=== PATIENT | female | born 1980 | race Caucasian/White ===

== ENCOUNTER 2024-05-26 09:34 | Emergency (ER) | payer OTHER ==
--- OUTSIDE RECORDS SUMMARY | 2024-05-26 09:37 | XMS REPORT | Continuity of Care Document ---
Author Name Unknown Address [address] [facility]. [address] [place] [address] [facility] thconnect Address [address] [facility]. [address] [place] [address] Care Team Providers Care [employer] Supervisor Name Role Phone Pcp, Patient Does Not Have A Primary Care Physic pricila NIMESH ULLOA Attending Clinician Unavailabl e Doctor Unassigned, [place] Attending Clinician U navailable Payers Payer Name Policy Type Policy Number Effective Date Expirati on Date Source [facility] [id number] 2020 00:00:00 Problems Condition Name Condition Details Condition Category Status Onset Date Resolution Date Last Treatment Date Treating Clinician Comments Source Tobacco use Tobacco use Disease Active 02-21 00:00: 00 [facility] Polysubsta nce abuse Polysubsta nce abuse Disease Active 02-21 00:00: 00 [facility] BMI 24.0-24.9, adult BMI 24.0-24.9, adult Disease Active -18 00:00: 00 [facility] History of bilateral tubal ligation History of bilateral tubal ligation Disease Active 8 00:00: 00 [facility] 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 Active 02-12 00:00: 00 [facility] Allergies, Adverse Reactions, Alerts Allergy Name Allergy Type Status Severity Reaction(s) Onset Date Inactive Date Treating Clinician Comments Source TREE NUTS Food Active ITCHING 02-19 00:00: 00 [facility] Tree Nuts Propensi ty to adverse reaction s Active Itching 02-19 00:00: 00 [facility] Social History Social Habit Start Date Stop Date Quantity Comments Source History of tobacco use Cigarette Smoker [facility] Exposure to SARS-CoV-2 (event) 2020-01-23 00:00:00 2020-02-22 15:43:00 Not sure [facility] Tobacco use and exposure 2020-02-22 00:00:00 2020-02-22 00:00:00 Smokeless tobacco non-user [facility] Alcohol intake 2020-02-22 00:00:00 2020-02-22 00:00:00 Current drinker of alcohol (finding) [facility] History of Social function 2020-02-22 00:00:00 2020-02-22 00:00:00 [facility] Tobacco Comment 2020-02-22 00:00:00 2020-02-22 00:00:00 3-5 cigarettes a day [facility] Alcohol Comment 2020-02-22 00:00:00 2020-02-22 00:00:00 occasional [facility] Sex Assigned At 1980 00:00:00 1980 00:00:00 [facility] Smoking Status Start Date Stop Date Source Smokes tobacco daily 2020-02-22 00:00:00 [facility] Encounters Start Date/Time End Date/Time Encounter Type Admission Type Attending Clinicians Care Facility Care Department Encounter ID Source 2023-05-14 11:44:46 2023-05-14 11:44:46 Outpatient S[facility] SFA [id number] [facility] 2020-04-06 13:30:00 2020-04-06 13:30:00 Outpatient R [facility] [id number] [facility] 2020-03-22 00:00:00 2020-03-22 00:00:00 Outpatient NIMESH BELTRAN [facility] [id number] [facility] 2020-03-09 15:30:00 2020-03-09 15:30:00 Outpatient R [facility] [id number] [facility] 2020-03-03 09:30:00 2020-03-03 09:30:00 Outpatient R [facility] [id number] [facility] 2020-03-02 00:00:00 2020-03-02 00:00:00 Patient Secure Msg Doctor Unassigned, [place] [facility] [id number] [facility] 2020-02-22 15:15:00 2020-02-22 15:15:00 Outpatient R NIMESH ULLOA [facility] [id number] [facility] 2020-02-09 22:42:00 2020-02-09 22:42:00 Emergency X [facility] ERT [id number] [facility]
--- NOTE | 2024-05-26 11:06 | ER ---
Nurse's Notes [facility] Name: Angie Leonardo Age: 43 yrs Sex: Female : 1980 Arrival Date: 05/26/2024 Time: 09:34 Bed 17 Private MD: Diagnosis: Dermatitis, unspecified;Allergic contact dermatitis due to other agents;Allergic contact dermatitis due to other chemical products Presentation: 05/26 09:43 Chief complaint: Patient states: Rash with itching to body off/on for 2 months. ll1 Coronavirus screen: Client denies travel out of the [place] in the last 14 days. At this time, the client does not indicate any symptoms associated with coronavirus-19. Ebola Screen: Patient denies travel to an Ebola-affected area in the 21 days before illness onset. Initial Sepsis Screen: Does the patient meet any 2 criteria? No. Patient's initial sepsis screen is negative. Does the patient have a suspected source of infection? No. Patient's initial sepsis screen is negative. Risk Assessment: Do you want to hurt yourself or someone else? Patient reports no desire to harm self or others. Onset of symptoms was March 26, 2024. 09:43 Method Of Arrival: Ambulatory ll1 09:43 Acuity: MADINA 4 ll1 Triage Assessment: 09:43 General: Appears uncomfortable, Behavior is calm, cooperative, appropriate for age. ll1 Pain: Denies pain. Derm: Reports rash with itching to body off/on for 2 months. Historical: - Allergies: 09:38 No Known Allergies; ll1 - Home Meds: 09:42 None [Active]; ll1 - PMHx: 09:42 None; ll1 - PSHx: 09:42 section; ll1 - Immunization history:: Adult Immunizations up to date. - Infectious Disease History:: Denies. - Social history:: Smoking status: Patient reports the use of cigarette tobacco products, smokes .1 packs per day. - Family history:: not pertinent. Screenin:52 [facility] ED Fall Risk Assessment (Adult) History of falling in the last 3 months, le1 including since admission No falls in past 3 months (0 pts) Confusion or Disorientation No (0 pts) Intoxicated or Sedated No (0 pts) Impaired Gait No (0 pts) Mobility Assist Device Used No (0 pt) Altered Elimination No (0 pt) Score/Fall Risk Level 0 - 2 = Low Risk Oriented to surroundings, Maintained a safe environment, Educated pt \T\ family on fall prevention, incl call for assistance when getting out of bed, Assessed \T\ reinforced patient's understanding of fall precautions, Hourly rounding (assess needs \T\ fall precautionary measures) done. Abuse screen: Denies threats or abuse. Nutritional screening: No deficits noted. Tuberculosis screening: No symptoms or risk factors identified. Assessment: 10:50 General: Appears in no apparent distress. well groomed, Behavior is calm, cooperative, le1 appropriate for age, Reports itchiness and generalized pain. Pain: Quality of pain is described as aching, itching. Neuro: No deficits noted. Cardiovascular: No deficits noted. Respiratory: Reports shortness of breath at rest. GI: No deficits noted. : No deficits noted. EENT: No deficits noted. Derm: Rash noted that is itchy, red, on Generalized Reports itching, pain that is 4 out of 10 on a pain scale. Vital Signs: 09:43 BP 124 / 86; Pulse 93; Resp 16; Temp 97.3; Pulse Ox 100% ; Weight 68.04 kg; Height 5 ll1 ft. 4 in. ; Pain 4/10; 10:51 BP 119 / 71; Pulse 90; Resp 16 S; Temp 98.4(O); Pulse Ox 100% ; Pain 4/10; le1 09:43 Body Mass Index 25.75 (68.04 kg, 162.56 cm) ll1 09:43 Pain Scale: Adult ll1 10:51 Pain Scale: Adult le1 ED Course: 09:36 Patient arrived in ED. mr 09:38 Arm band placed on. ll1 09:39 Mike Gross MD is Attending Physician. [facility] 09:44 Triage completed. ll1 10:11 Patient placed in an exam room, on a stretcher. ll1 10:15 Samson Donis, FELICIA is Primary Nurse. le1 10:53 Patient has correct armband on for positive identification. Bed in low position. Call le1 light in reach. Side rails up X2. Provided Education on: Informed patient to use call light when needing assistance. 11:18 Patient did not have IV access during this emergency room visit. le1 Administered Medications: 11:19 Not Given (Patient Refused): [id number] mg PO once le1 11:19 Not Given (Patient Refused): mg PO once le1 11:19 Not Given (Patient Refused): [id number] mg PO once le1 Medication: 10:53 VIS not applicable for this client. le1 Outcome: 11:06 Discharge ordered by . viral 11:17 Discharged to home ambulatory, le1 11:17 Condition: stable 11:17 Discharge instructions given to patient, Instructed on discharge instructions, follow up and referral plans. medication usage, Demonstrated understanding of instructions, follow-up care, medications, Prescriptions given X 3, 11:20 Patient left the ED. le1 Signatures: Mike Gross MD MD cha Rivera, Mary, Lamont Miguel mr Emma Proctor, RN RN 1 Samson Donis RN RN le1
--- NOTE | 2024-05-26 11:07 | EDPHYS ---
Physician Documentation [facility] Name: Angie Leonardo Age: 43 yrs Sex: Female : 1980 Arrival Date: 05/26/2024 Time: 09:34 Bed 17 Private MD: QUENTIN Physician Mike Gross HPI: 05/26 11:03 This 43 yrs old Female presents to ER via Ambulatory with complaints of Rash. viral 11:03 The patient's rash thought to be caused by allergies, Dermatitis Contact allergy. The viral rash is located on the body diffusely. The rash can be described as confluent, erythematous. Onset: The symptoms/episode began/occurred 3 day(s) ago. Associated signs and symptoms: Pertinent positives: burning sensation, itching. Severity of symptoms: At their worst the symptoms were mild moderate in the emergency department the symptoms have improved mildly. Treatment given at home: Benadryl. The patient has experienced similar episodes in the past, a few times. Historical: - Allergies: 09:38 No Known Allergies; ll1 - Home Meds: 09:42 None [Active]; ll1 - PMHx: 09:42 None; ll1 - PSHx: 09:42 section; ll1 - Immunization history:: Adult Immunizations up to date. - Infectious Disease History:: Denies. - Social history:: Smoking status: Patient reports the use of cigarette tobacco products, smokes .1 packs per day. - Family history:: not pertinent. ROS: 11:03 Constitutional: Negative for fever, chills, and weight loss, Eyes: Negative for injury, viral pain, redness, and discharge, ENT: Negative for injury, pain, and discharge, Neck: Negative for injury, pain, and swelling, Cardiovascular: Negative for chest pain, palpitations, and edema, Respiratory: Negative for shortness of breath, cough, wheezing, and pleuritic chest pain, Abdomen/GI: Negative for abdominal pain, nausea, vomiting, diarrhea, and constipation, Back: Negative for injury and pain, : Negative for injury, bleeding, discharge, and swelling, MS/Extremity: Negative for injury and deformity, Neuro: Negative for headache, weakness, numbness, tingling, and seizure, Psych: Negative for depression, anxiety, suicide ideation, homicidal ideation, and hallucinations, Allergy/Immunology: Negative for hives, rash, and allergies, Endocrine: Negative for neck swelling, polydipsia, polyuria, polyphagia, and marked weight changes, Hematologic/Lymphatic: Negative for swollen nodes, abnormal bleeding, and unusual bruising, 11:03 Skin: Positive for rash, Exam: : Constitutional: This is a well developed, well nourished patient who is awake, alert, viral and in no acute distress. Head/Face: Normocephalic, atraumatic. Eyes: Pupils equal round and reactive to light, extra-ocular motions intact. Lids and lashes normal. Conjunctiva and sclera are non-icteric and not injected. Cornea within normal limits. Periorbital areas with no swelling, redness, or edema. ENT: Nares patent. No nasal discharge, no septal abnormalities noted. Tympanic membranes are normal and external auditory canals are clear. Oropharynx with no redness, swelling, or masses, exudates, or evidence of obstruction, uvula midline. Mucous membranes moist. Neck: Trachea midline, no thyromegaly or masses palpated, and no cervical lymphadenopathy. Supple, full range of motion without nuchal rigidity, or vertebral point tenderness. No Meningismus. Chest/axilla: Normal chest wall appearance and motion. Nontender with no deformity. No lesions are appreciated. Cardiovascular: Regular rate and rhythm with a normal S1 and S2. No gallops, murmurs, or rubs. Normal PMI, no JVD. No pulse deficits. Respiratory: Lungs have equal breath sounds bilaterally, clear to auscultation and percussion. No rales, rhonchi or wheezes noted. No increased work of breathing, no retractions or nasal flaring. Abdomen/GI: Soft, non-tender, with normal bowel sounds. No distension or tympany. No guarding or rebound. No evidence of tenderness throughout. Back: No spinal tenderness. No costovertebral tenderness. Full range of motion. Skin: Warm, dry with normal turgor. Normal color with no rashes, no lesions, and no evidence of cellulitis. MS/ Extremity: Pulses equal, no cyanosis. Neurovascular intact. Full, normal range of motion. Neuro: Awake and alert, GCS 15, oriented to person, place, time, and situation. Cranial nerves II-XII grossly intact. Motor strength 5/5 in all extremities. Sensory grossly intact. Cerebellar exam normal. Normal gait. Psych: Awake, alert, with orientation to person, place and time. Behavior, mood, and affect are within normal limits. Vital Signs: 09:43 BP 124 / 86; Pulse 93; Resp 16; Temp 97.3; Pulse Ox 100% ; Weight 68.04 kg; Height 5 ll1 ft. 4 in. ; Pain 4/10; 10:51 BP 119 / 71; Pulse 90; Resp 16 S; Temp 98.4(O); Pulse Ox 100% ; Pain 4/10; le1 09:43 Body Mass Index 25.75 (68.04 kg, 162.56 cm) ll1 09:43 Pain Scale: Adult ll1 10:51 Pain Scale: Adult le1 MDM: 09:39 Medical Screening Exam initiated viral 11:04 Differential diagnosis: allergic reaction. Data reviewed: vital signs, nurses notes. viral Consideration of Admission/Observation Escalation of care including admission/observation considered. I considered the following discharge prescriptions or medication management in the emergency department Medications were administered in the Emergency Department. See MAR. Historians other than the Patient: pt well informed. Care significantly affected by the following chronic conditions: none. Administered Medications: 11:19 Not Given (Patient Refused): [id number] mg PO once le1 11:19 Not Given (Patient Refused): [id number] mg PO once le1 11:19 Not Given (Patient Refused): [id number] mg PO once le1 Disposition Summary: 05/26/24 11:06 Discharge Ordered Notes: Location: Home viral Problem: new viral Symptoms: have improved viral Condition: Stable viral Diagnosis - Dermatitis, unspecified viral - Allergic contact dermatitis due to other agents viral - Allergic contact dermatitis due to other chemical products viral Followup: viral - With: Private Physician - When: 2 - 3 days - Reason: Recheck today's complaints, Continuance of care, Re-evaluation by your physician Discharge Instructions: - Contact Dermatitis viral - Rash, Adult viral - Rash, Adult, Panv-hi-Rlwf viral - Contact Dermatitis, Celh-gf-Avry viral - Discharge Summary Sheet le1 Forms: - Medication Reconciliation Form viral - Antibiotic Education viral - Prescription Opioid Use viral - Patient Portal Instructions viral - Leadership Thank You Letter viral - Work release form le1 Prescriptions: - Benadryl 25 mg Oral Capsule - take 1 capsule ORAL route every 6 hours As needed; 30 tablet; Refills: 0, [facility] Product Selection Permitted - Pepcid 20 mg Oral tablet - take 1 tablet ORAL route every 12 hours for 21 days; 42 tablet; Refills: 0, viral Product Selection Permitted - Prednisone 20 mg Oral Tablet - take 2 tablets ORAL route once daily for 5 days; 10 tablet; Refills: 0, Product [facility] Selection Permitted Signatures: Mike Gross MD MD cha Lewis, Lynsay RN RN ll1 Samson Donis RN RN le1
[2024-05-26 11:24] VITALS: O2SAT 100
[2024-05-26 11:26] VITALS: BP 119/71; TEMP 98.4
== END 2024-05-26 11:20 | disposition home or self-care (01) ==
LOC: ER 09:34
DX: L23.5 Allergic contact dermatitis due to other chemical products (principal); L23.89 Allergic contact dermatitis due to other agents

== ENCOUNTER 2024-07-20 22:40 | Emergency (ER) | payer OTHER, SELFPAY ==
--- OUTSIDE RECORDS SUMMARY | 2024-07-20 22:42 | XMS REPORT | Continuity of Care Document ---
Author Name Unknown Address [address] [facility] [place]. [address] [place] [address] [facility] thconnect Address [address] [facility]. [address] [place] [address] Care Team Providers Care Chief Operating Engineer Name Role Phone Pcp, Patient Does Not Have A Primary Care Physic pricila NIMESH ULLOA Attending Clinician Unavailabl e Doctor Unassigned, [place] Attending Clinician U navailable Payers Payer Name Policy Type Policy Number Effective Date Expirati on Date Source [facility] [id number] 2020 00:00:00 Problems Condition Name Condition Details Condition Category Status Onset Date Resolution Date Last Treatment Date Treating Clinician Comments Source Tobacco use Tobacco use Disease Active 02-21 00:00: 00 [facility] Polysubsta nce abuse Polysubsta nce abuse Disease Active 02-21 00:00: 00 [facility] BMI 24.0-24.9, adult BMI 24.0-24.9, adult Disease Active 8-18 00:00: 00 [facility] History of bilateral tubal ligation History of bilateral tubal ligation Disease Active 8 00:00: 00 [facility] 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 Active 02-12 00:00: 00 [facility] Allergies, Adverse Reactions, Alerts Allergy Name Allergy Type Status Severity Reaction(s) Onset Date Inactive Date Treating Clinician Comments Source TREE NUTS Food Active ITCHING 02-19 00:00: 00 [facility] Tree Nuts Propensi ty to adverse reaction s Active Itching 02-19 00:00: 00 [facility] Social History Social Habit Start Date Stop Date Quantity Comments Source History of tobacco use Cigarette Smoker [facility] Exposure to SARS-CoV-2 (event) 2020-01-23 00:00:00 2020-02-22 15:43:00 Not sure [facility] Tobacco use and exposure 2020-02-22 00:00:00 2020-02-22 00:00:00 Smokeless tobacco non-user [facility] Alcohol intake 2020-02-22 00:00:00 2020-02-22 00:00:00 Current drinker of alcohol (finding) [facility] History of Social function 2020-02-22 00:00:00 2020-02-22 00:00:00 [facility] Tobacco Comment 2020-02-22 00:00:00 2020-02-22 00:00:00 3-5 cigarettes a day [facility] Alcohol Comment 2020-02-22 00:00:00 2020-02-22 00:00:00 occasional [facility] Sex Assigned At 1980 00:00:00 1980 00:00:00 [facility] Smoking Status Start Date Stop Date Source Smokes tobacco daily 2020-02-22 00:00:00 [facility] Encounters Start Date/Time End Date/Time Encounter Type Admission Type Attending Clinicians Care Facility Care Department Encounter ID Source 2023-05-14 11:44:46 2023-05-14 11:44:46 Outpatient SFA SFA [id number] [facility] 2020-04-06 13:30:00 2020-04-06 13:30:00 Outpatient R [facility] [id number] [facility] 2020-03-22 00:00:00 2020-03-22 00:00:00 Outpatient NIMESH BELTRAN [facility] [id number] [facility] 2020-03-09 15:30:00 2020-03-09 15:30:00 Outpatient R [facility] [id number] [facility] 2020-03-03 09:30:00 2020-03-03 09:30:00 Outpatient R [facility] [id number] [facility] 2020-03-02 00:00:00 2020-03-02 00:00:00 Patient Secure Msg Doctor Unassigned, [place] [facility] [id number] [facility] 2020-02-22 15:15:00 2020-02-22 15:15:00 Outpatient R NIMESH ULLOA [facility] [id number] [facility] 2020-02-09 22:42:00 2020-02-09 22:42:00 Emergency X [facility] ERT [id number] [facility]
--- NOTE | 2024-07-20 23:33 | ER ---
Nurse's Notes [facility] Name: Angie Leonardo Age: 43 yrs Sex: Female : 1980 Arrival Date: 07/20/2024 Time: 22:40 Bed IW1 Private MD: Diagnosis: ED Course: 07/20 22:43 Patient arrived in ED. im 22:47 Mike Porter PA is PHCP. cp 22:47 Abilio Cleaning MD is Attending Physician. cp 23:06 Patient's name was called from ER [email or web address]. No response. Unable to locate patient. Will vc1 disposition as left without being seen by a provider. Administered Medications: No medications were administered Outcome: 23:06 Eloped from waiting room, before seeing physician Time discovered patient gone: July at 23:06 23:06 Condition: good 23:32 Patient left the ED. vc1 Signatures: Mike Porter PA PA cp Calcote, Vanessa, RN RN vc1 Kim Rossi im Corrections: (The following items were deleted from the chart) 23:32 23:32 Eloped from waiting room, before seeing physician Time discovered patient gone: vc1 July 20, 2024 at 23:06 vc1 23:32 23:32 Condition: good vc1 vc1
== END 2024-07-20 23:32 | disposition left against medical advice (07) ==
LOC: ER 22:40
DX: Z02.9 Encounter for administrative examinations, unspecified (principal)

== ENCOUNTER 2025-04-22 23:32 | Emergency (ER) | payer BC, SELFPAY ==
--- OUTSIDE RECORDS SUMMARY | 2025-04-22 23:35 | XMS REPORT | Continuity of Care Document ---
Author Name Unknown Address [address] [facility] [place] [address] Organization [facility] [place] Address [address] [facility] [place] [address] Care Team Providers Care Guest Services Ambassador Name Role Phone Pcp, Patient Does Not Have A Primary Care Physic pricila NIMESH ULLOA Attending Clinician Unavailabl e Doctor Unassigned, Edwards Attending Clinician U navailable Payers Payer Name Policy Type Policy Number Effective Date Expirati on Date Source [facility] [place] [facility] [id number] 2020 00:00:00 Problems Condition Name Condition Details Condition Category Status Onset Date Resolution Date Last Treatment Date Treating Clinician Comments Source Tobacco use Tobacco use Disease Active 18 00:00: 00 [facility] Polysubsta nce abuse Polysubsta nce abuse Disease Active 818 00:00: 00 [facility] BMI 24.0-24.9, adult BMI 24.0-24.9, adult Disease Active 18 00:00: 00 [facility] History of bilateral tubal ligation History of bilateral tubal ligation Disease Active 818 00:00: 00 [facility] 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 Active 09 00:00: 00 [facility] Allergies, Adverse Reactions, Alerts Allergy Name Allergy Type Status Severity Reaction(s) Onset Date Inactive Date Treating Clinician Comments Source TREE NUTS Food Active ITCHING 02-19 00:00: 00 [facility] Tree Nuts Propensi ty to adverse reaction s Active Itching 02-19 00:00: 00 [facility] Social History Social Habit Start Date Stop Date Quantity Comments Source History of tobacco use Cigarette Smoker [facility] Exposure to SARS-CoV-2 (event) 2020-01-23 00:00:00 2020-02-22 15:43:00 Not sure [facility] Tobacco use and exposure 2020-02-22 00:00:00 2020-02-22 00:00:00 Smokeless tobacco non-user [facility] Alcohol intake 2020-02-22 00:00:00 2020-02-22 00:00:00 Current drinker of alcohol (finding) [facility] History of Social function 2020-02-22 00:00:00 2020-02-22 00:00:00 [facility] Tobacco Comment 2020-02-22 00:00:00 2020-02-22 00:00:00 3-5 cigarettes a day [facility] Alcohol Comment 2020-02-22 00:00:00 2020-02-22 00:00:00 occasional [facility] Sex Assigned At 1980 00:00:00 1980 00:00:00 [facility] Smoking Status Start Date Stop Date Source Smokes tobacco daily 2020-02-22 00:00:00 [facility] Encounters Start Date/Time End Date/Time Encounter Type Admission Type Attending Clinicians Care Facility Care Department Encounter ID Source 2023-05-14 11:44:46 2023-05-14 11:44:46 Outpatient [facility] [id number] [facility]ival 2020-04-06 13:30:00 2020-04-06 13:30:00 Outpatient R [facility] [id number] [facility] 2020-03-22 00:00:00 2020-03-22 00:00:00 Outpatient NIMESH BELTRAN [facility] [id number] [facility] 2020-03-09 15:30:00 2020-03-09 15:30:00 Outpatient R [facility] [id number] [facility] 2020-03-03 09:30:00 2020-03-03 09:30:00 Outpatient R [facility] [id number] [facility] 2020-03-02 00:00:00 2020-03-02 00:00:00 Patient Secure Msg Doctor Unassigned, Edwards [facility] [id number] [facility] 2020-02-22 15:15:00 2020-02-22 15:15:00 Outpatient R NIMESH ULLOA [facility] [id number] [facility] 2020-02-09 22:42:00 2020-02-09 22:42:00 Emergency X [facility] ERT [id number] [facility]
[2025-04-22] MEDS ORDERED: ONDANSETRON 4 MG/2 ML VIAL ONE (23:42)
[2025-04-22] MEDS ORDERED: MORPHINE 4 MG/ML SYR ONE (23:43)
[2025-04-22] MEDS ORDERED: NA CHLORIDE 0.9% 1,000 ML ONE (23:43)
[2025-04-22 23:59] LABS: Absolute Lymphocytes (CBC) 1.6 K/uL (0.7-4.9); Hematocrit 20.7 % (36.0-45.0); Hemoglobin 6.5 g/dL (12.0-15.0); MCH 27.4 pg (27.0-35.0); MCHC 31.6 g/dL (32.0-36.0); MCV 86.8 fL (80-100); MPV 8.1 fL (7.6-11.3); Nucleated RBC Absolute Count 0.0 (0-0); Nucleated Red Blood Cells % 0.0 % (0-0); RBC Red Blood Cell Count 2.38 M/uL (3.86-4.86); White Blood Count 5.20 thou/uL (4.3-10.9)
[2025-04-23 00:15] LABS: PT Prothrombin Time 15.8 SECONDS (10-13.0); PTT, Activated Partial Thromb 32.7 SECONDS (27.2-37.4); Protime INR 1.41
[2025-04-23] MEDS ORDERED: ANTIVENIN CROTALIDAE IV ONE (00:35)
[2025-04-23 00:36] LABS: ALT/SGPT 44 U/L (13-56); AST/SGOT 21 U/L (15-37); Albumin 1.9 g/dL (3.4-5.0); Albumin/Globulin Ratio 0.9 (1.1-1.8); Alkaline Phosphatase 67 U/L (45-117); Anion Gap 6.3 mEq/L (5.0-15.0); BUN Blood Urea Nitrogen 9 mg/dL (7-18); Globulin 2.1 g/dL (2.3-3.5); Glucose Level 59 mg/dL (74-106); Lipase 17 U/L (13-75)
[2025-04-23] MEDS ORDERED: NA CHLORIDE 0.9% 0 ML ONE (00:36)
[2025-04-23] MEDS ORDERED: NA CHLORIDE 0.9% 250 ML ONE (00:38)
[2025-04-23 00:39] LABS: Potassium 2.3 mEq/L (3.5-5.1)
--- NOTE | 2025-04-23 00:42 | EDPHYS ---
Physician Documentation [facility] Name: Angie Leonardo Age: 44 yrs Sex: Female : 1980 Arrival Date: 04/22/2025 Time: 23:32 Bed 4 Private MD: ED Physician Mikhail Paiz HPI: 04/23 01:52 This 44 yrs old Female presents to ER via Wheelchair with complaints of Snake bite. tt7 01:52 Patient reports being bitten by a snake on her left foot approximately 5 minutes prior tt7 to arrival. She was unsure exactly what type of snake it was but did appears similar to a rattlesnake. Currently she is complaining of significant burning left foot pain which radiates up her lower leg. She has no significant past medical history. She has no known allergies. Tetanus vaccine is up-to-date. Historical: - Allergies: 04/22 23:57 No Known Allergies; ha1 - PMHx: 23:57 None; ha1 - PSHx: 23:57 section; ha1 - Immunization history:: Adult Immunizations up to date, Last tetanus immunization: up to date. - Infectious Disease History:: Denies. - Social history:: Smoking status: Patient reports the use of cigarette tobacco products, smokes one-half pack cigarettes per day. ROS: 04/23 01:52 Constitutional: negative for fever. Cardiovascular: negative for chest pain. tt7 Respiratory: negative for shortness of breath. Abdomen/GI: negative for abdominal pain, nausea, vomiting, diarrhea. Neuro: negative for focal weakness. MS/extremity: Positive for bite, pain, swelling, tenderness, Exam: 02:06 Constitutional: vital signs reviewed, uncomfortable appearing. Head/Face: tt7 normocephalic, atraumatic. Eyes: no conjunctival injection, anicteric sclerae. ENT: mucus membranes moist. Neck: trachea midline, no JVD, no meningismus. Cardiovascular: regular rate and rhythm, no murmurs, no rubs. Respiratory: normal respiratory effort, no accessory muscle use, lungs CTAB. Abdomen/GI: soft, nondistended, nontender, no guarding or rebound, negative Cadena's sign, no McBurney point tenderness. Back: normal ROM. MS/ Extremity: 2 puncture wounds to the dorsal medial aspect of the left foot with 2 cm circumferential area of blanching and approximately 4 cm circumferential area of erythema with mild amount of swelling, mild amount of warmth, and very tender to palpation, patient neurovascularly intact distally Neuro: alert and oriented with appropriate mental status, normal speech, follows commands, no focal neurologic deficits. Psych: appropriate mood and affect. Vital Signs: 04/22 23:32 BP 133 / 83; Pulse 73; Resp 18 S; Temp 98.3; Pulse Ox 100% on R/A; Weight 68.04 kg; ha1 Height 5 ft. 4 in. ; 23:54 BP 133 / 83; Pulse 84; Resp 17; Pulse Ox 99% on R/A; Pain 04/15; tb4 04/23 01:07 BP 119 / 69; Pulse 89; Resp 16; Pulse Ox 99% ; vc1 01:30 BP 119 / 69; Pulse 89; Resp 16; Pulse Ox 99% ; vc1 04/22 23:32 Body Mass Index 25.75 (68.04 kg, 162.56 cm) ha1 23:54 Pain Scale: Adult tb4 MDM: 04/22 23:37 Medical Screening Exam initiated tt7 04/23 00:09 Differential diagnosis: Dry snakebite, crotalid envenomation, elapid snake tt7 envenomation. Data reviewed: vital signs, nurses notes, old medical records, lab test result(s). ED course: Patient has obvious snakebite to left foot, some surrounding blanching and erythema, significant pain, vital signs are stable, patient is neurovascularly intact, will obtain complete blood count, coagulation studies, fibrinogen, and administer parenteral opioids. Will monitor for progression of local effects or appearance of systemic effects of crotalid envenomation and consider administering antivenom. Poison control contacted and case number is [id number]. 00:32 ED course: I have reassessed the patient, there has been significant progression of tt7 local symptoms, patient having increased pain, swelling has progressed significantly past to the original border I rich, at this point feel be best to proceed with treatment with crotalid antivenom. 00:43 ED course: Initial lab studies showed a hemoglobin of 6.5 and fibrinogen in the 160s, tt7 initially suspected that this was a chronic anemia but ordered 1 unit of red blood cells to be transfused given the potential Heema toxic effects of crotalid venom. Multiple subsequent lab values which are low including potassium of 2.3, calcium of 5.2, with slightly elevated sodium of 147 and significantly elevated chloride, findings are concerning for dilution with normal saline, will send off new set of laboratory studies. 01:56 ED course: Anavip administered, blood transfusion canceled as repeat lab studies are tt7 significantly improved, initial sample was likely diluted with saline, transfer was initiated for higher level of care, patient was reassessed after Anavip administration and is tolerating the antivenom well, no signs/symptoms of allergic reaction, I discussed the case with Dr. Boyd at [facility] who accepts the patient for transfer. 02:05 ED course: This patient has a medical condition that impairs one or more vital organ tt7 systems and has a high probability of imminent or life threatening deterioration in their condition. Management of this patient required my highest level of care and included frequent personal assessment and intervention. I personally spent 40 minutes of critical care time, exclusive of time spent on separately billable procedures, in the evaluation and management of this patient's condition. This critical care time included independently obtaining a history, examining the patient, pulse oximetry, cardiac telemetry monitoring, ordering and review of studies laboratory and imaging studies, development of a management plan, evaluation of patient's response to treatment, frequent reassessment, and discussion with other healthcare providers. 04/22 23:40 Order name: CBC with Diff; Complete Time: 00:06 tt7 04/22 23:40 Order name: PT-INR; Complete Time: 00:22 tt7 04/22 23:40 Order name: Ptt, Activated; Complete Time: 00:22 tt7 04/22 23:40 Order name: CMP; Complete Time: 00:42 tt7 04/22 23:40 Order name: Lipase; Complete Time: 00:42 tt7 04/22 23:42 Order name: Fibrinogen; Complete Time: 00:33 tt7 04/23 00:11 Order name: Packed Rbc Leukored tt7 04/23 00:11 Order name: Type And Screen tt7 04/23 00:14 Order name: ABO/RH typing EDWA 04/23 00:14 Order name: Antibody Screen EDWA 04/23 00:46 Order name: CBC w/o diff; Complete Time: 01:25 tt7 04/23 00:46 Order name: BMP; Complete Time: 01:43 tt7 04/23 00:46 Order name: PT-INR; Complete Time: 01:25 tt7 04/23 00:46 Order name: Fibrinogen; Complete Time: 01:25 tt7 04/22 23:40 Order name: Cardiac monitoring; Complete Time: 00:06 tt7 04/22 23:40 Order name: IV Saline Lock; Complete Time: 23:51 tt7 04/22 23:40 Order name: Labs collected and sent; Complete Time: 23:58 tt7 04/22 23:40 Order name: O2 Per Protocol; Complete Time: 23:51 tt7 04/22 23:40 Order name: O2 Sat Monitoring; Complete Time: 23:51 tt7 04/23 00:11 Order name: IV Saline Lock; Complete Time: 00:25 tt7 Administered Medications: 04/22 23:50 Drug: morphine IVP or IV 4 mg IVP once over 4 mins Route: IVP; Infused Over: 4 mins; tb4 Site: left hand; 04/23 00:00 Follow up: Response: No adverse reaction; No change in condition vc1 04/22 23:50 Drug: Ondansetron IVP 4 mg IVP once; over 2 minutes Route: IVP; Site: left hand; tb4 04/23 00:47 Follow up: Response: No adverse reaction tb4 04/22 23:50 Drug: NS 0.9% IV 1000 ml IV at 1000 ml once; to be given as a bolus over 60 minutes tb4 Route: IV; Rate: 1000 ml; Site: right hand; 04/23 00:50 Follow up: IV Status: Completed infusion; IV Intake: 1000ml vc1 01:05 Drug: Anavip 10 vials IV at per protocol once; as a single dose; over 60 minutes Route: vc1 IV; Rate: per protocol; Site: left wrist; 02:10 Follow up: IV Status: Completed infusion; IV Intake: 350ml vc1 01:33 Drug: HYDROmorphone IVP 1 mg IVP once Route: IVP; Site: right forearm; vc1 01:45 Follow up: Response: No adverse reaction; Marked relief of symptoms; Pain is decreased vc1 Disposition: 02:11 Co-signature as Attending Physician, Mikhail Tarleton DO. tt7 Disposition Summary: 04/23/25 00:42 Transfer Ordered Notes: Transfer Location: [facility] tt7 Reason: Higher level of care tt7 Condition: Serious tt7 Problem: new tt7 Symptoms: are unchanged tt7 Accepting Physician: Dr. Boyd(04/23/25 02:18) vc1 Diagnosis - Toxic effect of snake venom tt7 - Anemia, unspecified tt7 - Hypokalemia tt7 - Pain in left foot tt7 Forms: - Medication Reconciliation Form tt7 - SBAR form tt7 Signatures: Dispatcher [employer] EDMS Loren Salazar RN RN vc1 Natasha Juarez RN RN ha1 Yi Edmondson RN RN tb4 Mikhail Paiz, DO tt7 Corrections: (The following items were deleted from the chart) 04/22 23:41 23:41 CBC+H.LAB.BRZ ordered. EDWA EDMS 23:41 23:41 PROTIME (+INR)+COAG.LAB.BRZ ordered. EDWA EDMS 23:41 23:41 PTT, ACTIVATED+COAG.LAB.BRZ ordered. EDWA EDMS 23:41 23:41 COMPREHENSIVE METABOLIC PANEL+C.LAB.BRZ ordered. EDMS EDMS 23:41 23:41 LIPASE+C.LAB.BRZ ordered. EDWA EDMS 04/23 00:45 00:32 ED course: I have reass. tt7 tt7 01:33 00:11 Blood Transfusion Consent ordered. tt7 vc1 01:56 00:42 ttTa tt7 01:56 01:52 Patient reports being bitten by a snake on her left foot approximately 5 minutes tt7 prior to arrival. She was unsure exactly what type of snake it was but did appears similar to a rattlesnake. Currently she is complaining of significant burning left foot pain which radiates up her lower leg. She has no significant past medical history. She has no known allergies. tt7 02:02 00:09 Differential diagnosis: g tt7 tt7 02:02 00:09 ED course: g. tt7 tt7 02:02 00:43 ED course: Patient has multiple lab values which are low including potassium of tt7 2.3, calcium of 5.2, with slightly elevated sodium of 147 and significantly elevated chloride, findings are concerning for dilution with normal saline, will send off new set of laboratory studies. tt7 02:18 01:56 Dr. Boyd tt7 vc1
--- NOTE | 2025-04-23 00:42 | ER ---
Nurse's Notes [facility] Name: Angie Leonardo Age: 44 yrs Sex: Female : 1980 Arrival Date: 04/22/2025 Time: 23:32 Bed 4 Private MD: Diagnosis: Toxic effect of snake venom;Anemia, unspecified;Hypokalemia;Pain in left foot Presentation: 04/22 23:32 Chief complaint: Patient states: SNAKE BITE ON THE LEFT FOOT. HAPPENED 15 MINUTES AGO. ha1 23:32 Coronavirus screen: Client denies travel out of the [place] in the last 14 days. Ebola ha1 Screen: No symptoms or risks identified at this time. Initial Sepsis Screen: Does the patient meet any 2 criteria? No. Patient's initial sepsis screen is negative. Does the patient have a suspected source of infection? No. Patient's initial sepsis screen is negative. Risk Assessment: Do you want to hurt yourself or someone else? Patient reports no desire to harm self or others. Onset of symptoms was April 22, 2025. 23:32 Method Of Arrival: Wheelchair ha1 23:32 Acuity: MADINA 2 ha1 Triage Assessment: 23:57 Bite description: bite sustained to left foot is from animal, was sustained less than ha1 30 minutes ago. by a snake. General: Appears uncomfortable, Behavior is cooperative. Pain: Complains of pain in left foot Pain currently is 5 out of 10 on a pain scale. Neuro: Level of Consciousness is awake, alert, obeys commands, Oriented to person, place, time, situation. Cardiovascular: Patient's skin is warm and dry. Respiratory: Airway is patent Respiratory effort is even, unlabored, Respiratory pattern is regular, symmetrical. 04/23 01:34 Bite description: animal information: vaccination(s) is not applicable. vc1 Historical: - Allergies: 04/22 23:57 No Known Allergies; ha1 - PMHx: 23:57 None; ha1 - PSHx: 23:57 section; ha1 - Immunization history:: Adult Immunizations up to date, Last tetanus immunization: up to date. - Infectious Disease History:: Denies. - Social history:: Smoking status: Patient reports the use of cigarette tobacco products, smokes one-half pack cigarettes per day. Screenin:58 [facility] ED Fall Risk Assessment (Adult) History of falling in the last 3 months, tb4 including since admission No falls in past 3 months (0 pts) Confusion or Disorientation No (0 pts) Intoxicated or Sedated No (0 pts) Impaired Gait No (0 pts) Mobility Assist Device Used No (0 pt) Altered Elimination No (0 pt) Score/Fall Risk Level 0 - 2 = Low Risk Maintained a safe environment. Abuse screen: Denies threats or abuse. Denies injuries from another. Nutritional screening: No deficits noted. Tuberculosis screening: No symptoms or risk factors identified. Assessment: 04/23 00:00 General: Appears in no apparent distress. uncomfortable, slender, Behavior is calm, vc1 cooperative, appropriate for age. Pain: Complains of pain in left foot Pain does not radiate. Pain currently is 10 out of 10 on a pain scale. Quality of pain is described as pressure. Neuro: Level of Consciousness is awake, alert, obeys commands, Oriented to person, place, time, situation, Appropriate for age. Cardiovascular: Heart tones S1 S2 present Capillary refill < 3 seconds Patient's skin is warm and dry. Respiratory: Airway is patent Respiratory effort is even, unlabored, Respiratory pattern is regular, symmetrical, Breath sounds are clear bilaterally. GI: No deficits noted. No signs and/or symptoms were reported involving the gastrointestinal system. : No deficits noted. No signs and/or symptoms were reported regarding the genitourinary system. EENT: No deficits noted. No signs and/or symptoms were reported regarding the EENT system. Derm: Skin bite to left foot, pt states from copper head snake Skin is red, Wound noted left foot Decubitus Reports pain that is 10 out of 10 on a pain scale. Musculoskeletal: Swelling present in left foot. Vital Signs: 04/22 23:32 BP 133 / 83; Pulse 73; Resp 18 S; Temp 98.3; Pulse Ox 100% on R/A; Weight 68.04 kg; ha1 Height 5 ft. 4 in. ; 23:54 BP 133 / 83; Pulse 84; Resp 17; Pulse Ox 99% on R/A; Pain 10/10; tb4 04/23 01:07 BP 119 / 69; Pulse 89; Resp 16; Pulse Ox 99% ; vc1 01:30 BP 119 / 69; Pulse 89; Resp 16; Pulse Ox 99% ; vc1 04/22 23:32 Body Mass Index 25.75 (68.04 kg, 162.56 cm) ha1 23:54 Pain Scale: Adult tb4 ED Course: 04/22 23:36 Patient arrived in ED. al6 23:37 Mikhail Paiz DO is Attending Physician. tt7 23:49 Inserted saline lock: 20 gauge in left hand, using aseptic technique. Flushed with 10 tb4 mL NS. 23:50 Inserted saline lock: 22 gauge in left antecubital area, using aseptic technique. Blood tb4 collected. Flushed with 10 mL NS. 23:57 Triage completed. ha1 23:58 Initial lab(s) drawn, by ED staff, sent to lab. tb4 23:58 Patient has correct armband on for positive identification. Bed in low position. Call tb4 light in reach. Adult w/ patient. library monitor on. Door closed. Warm blanket given. 04/23 01:34 Arm band placed on right wrist. vc1 01:37 Provided Education on: transfer for higher level of care. vc1 02:17 No provider procedures requiring assistance completed. Patient transferred, IV remains vc1 in place. Administered Medications: 04/22 23:50 Drug: morphine IVP or IV 4 mg IVP once over 4 mins Route: IVP; Infused Over: 4 mins; tb4 Site: left hand; 04/23 00:00 Follow up: Response: No adverse reaction; No change in condition vc1 04/22 23:50 Drug: Ondansetron IVP 4 mg IVP once; over 2 minutes Route: IVP; Site: left hand; tb4 04/23 00:47 Follow up: Response: No adverse reaction tb4 04/22 23:50 Drug: NS 0.9% IV 1000 ml IV at 1000 ml once; to be given as a bolus over 60 minutes tb4 Route: IV; Rate: 1000 ml; Site: right hand; 04/23 00:50 Follow up: IV Status: Completed infusion; IV Intake: 1000ml vc1 01:05 Drug: Anavip 10 vials IV at per protocol once; as a single dose; over 60 minutes Route: vc1 IV; Rate: per protocol; Site: left wrist; 02:10 Follow up: IV Status: Completed infusion; IV Intake: 350ml vc1 01:33 Drug: HYDROmorphone IVP 1 mg IVP once Route: IVP; Site: right forearm; vc1 01:45 Follow up: Response: No adverse reaction; Marked relief of symptoms; Pain is decreased vc1 Medication: 01:34 VIS not applicable for this client. vc1 Intake: 00:50 IV: 1000ml; Total: 1000ml. vc1 02:10 IV: 350ml; Total: 1350ml. vc1 Outcome: 00:42 ER care complete, transfer ordered by . tt7 02:17 Transferred by helicopter to [facility], Transfer form completed. X-rays sent vc1 w/ patient. 02:17 Condition: stable 02:17 Instructed on the need for transfer, 02:18 Patient left the ED. vc1 Signatures: Loren Salazar RN RN vc1 Natasha Juarez RN RN ha1 Susanne Alfaro al6 Yi Edmondson RN RN tb4 Mikhail Paiz, DO DO tt7
[2025-04-23 01:14] LABS: Hematocrit 38.6 % (36.0-45.0); Hemoglobin 12.3 g/dL (12.0-15.0); MCH 27.3 pg (27.0-35.0); MCHC 31.8 g/dL (32.0-36.0); MCV 85.8 fL (80-100); MPV 8.9 fL (7.6-11.3); RBC Red Blood Cell Count 4.50 M/uL (3.86-4.86); White Blood Count 14.10 thou/uL (4.3-10.9)
[2025-04-23] MEDS ORDERED: HYDROMORPHONE HCL 1 MG/ML INJ ONE (01:19)
[2025-04-23 01:23] LABS: Fibrinogen 331.0 mg/dL (201-446); PT Prothrombin Time 12.7 SECONDS (10-13.0); Protime INR 1.13
[2025-04-23 01:31] LABS: Anion Gap 7.8 mEq/L (5.0-15.0); BUN Blood Urea Nitrogen 12.0 mg/dL (7-18); Glucose Level 84.0 mg/dL (74-106); Potassium 3.8 mEq/L (3.5-5.1)
[2025-04-23 09:25] VITALS: TEMP 98.3
[2025-04-23 09:26] VITALS: O2SAT 99
[2025-04-23 09:27] VITALS: BP 119/69
== END 2025-04-23 02:18 | disposition short-term general hospital (02) ==
LOC: ER 23:32
DX: T63.001A Toxic effect of unspecified snake venom, accidental (unintentional), initial encounter (principal); D64.9 Anemia, unspecified; E87.6 Hypokalemia; F17.210 Nicotine dependence, cigarettes, uncomplicated
CPT/HCPCS: 85025; 80048; 36415; 86900; 85384 ×2; 86850; 85610 ×2; 86901; 85730; 85027; 83690; 80053; 99285; J1171; J2405; J0841; J7050; J7030; J7040